=== PATIENT | female | born 1950 | race Caucasian/White ===

== ENCOUNTER 2021-07-25 14:23 | Emergency (ER) | payer MEDICARE, BC ==
[2021-07-25] MEDS ORDERED: Sodium Chloride 0.9% 10 ML Syringe FLUSH PRN (14:38)
[2021-07-25] MEDS ORDERED: Aspirin 81 MG Tab.Chew PO ONE (14:38)
[2021-07-25] MEDS ORDERED: Heparin Sodium 5,000 Units/ML Vial IVPUSH ONE (15:18)
[2021-07-25] MEDS ORDERED: Heparin Sodium/0.45% NaCl 500 ML IV SCH (15:20)
[2021-07-25] MEDS ORDERED: Glucagon,Human Recombinant 1 MG Vial IM PRN (15:37)
[2021-07-25] MEDS ORDERED: 50% Dextrose in Water 50 ML Syringe IVPUSH PRN (15:37)
[2021-07-25] MEDS ORDERED: Insulin Regular, Human 100 Units/ML 3 ML Vial IV ONE (15:37)
[2021-07-25] MEDS ORDERED: Sodium Chloride 0.9% 500 ML IV ONE (15:37)
== END 2021-07-25 17:05 ==
LOC: FB.ED 14:23
DX: I21.4 Non-ST elevation (NSTEMI) myocardial infarction (principal); E10.9 Type 1 diabetes mellitus without complications; I25.10 Atherosclerotic heart disease of native coronary artery without angina pectoris; E78.00 Pure hypercholesterolemia, unspecified; I25.2 Old myocardial infarction; M10.9 Gout, unspecified; E66.9 Obesity, unspecified; Z68.29 Body mass index [BMI] 29.0-29.9, adult; Z95.5 Presence of coronary angioplasty implant and graft; Z95.1 Presence of aortocoronary bypass graft; Z88.1 Allergy status to other antibiotic agents; Z88.8 Allergy status to other drugs, medicaments and biological substances; Z79.899 Other long term (current) drug therapy; Z79.4 Long term (current) use of insulin; Z20.822 Contact with and (suspected) exposure to COVID-19
CPT/HCPCS: 36415; 71045; 80053; 83735; 84484; 85025; 85610; 85730; 93005; 93010; 96365; 99284; 99285-25; A9270-GY; J1644; J1815-GY; J7040; U0002